=== PATIENT | female | born 1955 | race Hispanic/Latino ===

== ENCOUNTER 2021-07-10 09:16 | Outpatient (CLI) | payer MEDICARE | END 2021-07-10 09:17 | disposition home or self-care (01) | LOC: BICMAMMO 09:16 | PROVIDERS: ATTEND Student in an Organized Health Care Education/Training Program | DX: Z12.31 Encounter for screening mammogram for malignant neoplasm of breast (principal) | CPT/HCPCS: 77063; 77067 ==

== ENCOUNTER 2022-06-08 16:02 | Observation (INO) | payer MEDICARE ==
[2022-06-08 17:00] LABS: #Basophils 0.1 thou/uL (0.0-0.2); #Eosinphils 0.2 thou/uL (0.0-0.7); #Lymphocytes 2.9 thou/uL (1.20-3.40); #Monocytes 0.6 thou/uL (0.11-0.59); #Neutrophils 5.1 thou/uL (1.40-6.50); %Basophils 0.7 % (0.0-1.0); %Eosinophils 2.5 % (0.0-10.0); %Monocytes 6.2 % (0.0-10.0); %Neutrophils 57.7 % (42.0-75.0); Hemoglobin 14.5 g/dL (12.0-16.0); Mean Corpuscular Hemoglobin 34.4 pg (27.0-31.0); Mean Corpuscular Volume 98.2 fl (78.0-98.0); Mean Platelet Volume 9.2 fL (7.4-10.4); Platelet Count 192 10x3/uL (130-400); RBC Distribution Width 10.8 % (11.5-14.5); White Blood Cell (WBC) Count 8.8 10x3/uL (4.8-10.8)
[2022-06-08 17:23] LABS: ALT (SGPT) 30 U/L (8-55); AST (SGOT) 30 U/L (5-34); Albumin 4.3 g/dL (3.4-4.8); Alkaline Phosphatase 108 U/L (40-110); Anion Gap 14 mmol/L (10-20); BUN (Urea Nitrogen) 14 mg/dL (9.8-20.1); Bilirubin, Total 0.6 mg/dL (0.2-1.2); Calc. Creatinine Clearance 0 mL/min (70-130); Calcium 9.2 mg/dL (7.8-10.44); Carbon Dioxide 22 mmol/L (23-31); Chloride 108 mmol/L (98-107); Estimated GFR 52; Globulin 3.3 g/dL (2.4-3.5); Glucose 184 mg/dL (80-115); Potassium 3.8 mmol/L (3.5-5.1); Protein, Total 7.6 g/dL (5.8-8.1); Sodium 140 mmol/L (136-145)
[2022-06-08] MEDS ORDERED: Nitroglycerin 2% Ointment 1 INCH/1 GM Packet ONE (19:47)
[2022-06-08] MEDS ORDERED: Aspirin Chewable 81 MG TAB ONE (19:47)
[2022-06-08] MEDS ORDERED: Morphine 4 MG/ML VIAL ONE (22:34)
[2022-06-08 23:00] LABS: Troponin I Less than 0.010 ng/mL (< 0.028)
[2022-06-08] MEDS ORDERED: Nitroglycerin 0.4 MG TAB (25 Tab Bottle) SL PRN (23:13)
[2022-06-08] MEDS ORDERED: Ondansetron PF 4 MG/2 ML Vial IVP PRN (23:13)
[2022-06-08] MEDS ORDERED: Acetaminophen 325 MG TAB PO PRN (23:13)
[2022-06-08] MEDS ORDERED: Ondansetron ODT 4 MG TAB PO PRN (23:13)
[2022-06-08 23:45] LABS: Magnesium 2.2 mg/dL (1.6-2.6)
[2022-06-09 01:06] LABS: Hemoglobin A1c 5.7 % (4.0-6.0)
[2022-06-09 05:32] LABS: Anion Gap 12 mmol/L (10-20); BUN (Urea Nitrogen) 12 mg/dL (9.8-20.1); Calc. Creatinine Clearance 0 mL/min (70-130); Calcium 8.4 mg/dL (7.8-10.44); Carbon Dioxide 21 mmol/L (23-31); Cardiac Risk 5.8 (Less than 4.5); Chloride 112 mmol/L (98-107); Cholesterol 173 mg/dl (< 200 Desired); Estimated GFR 87; Glucose 126 mg/dL (80-115); HDL Cholesterol 30 mg/dL (>60 Neg Risk); LDL Cholesterol, Calculated 104 mg/dL; Potassium 3.8 mmol/L (3.5-5.1); Sodium 141 mmol/L (136-145); Triglycerides 193 mg/dL (Less than 150); Troponin I Less than 0.010 ng/mL (< 0.028)
[2022-06-09 05:41] LABS: #Basophils 0.1 thou/uL (0.0-0.2); #Eosinphils 0.3 thou/uL (0.0-0.7); #Lymphocytes 3.1 thou/uL (1.20-3.40); #Monocytes 0.4 thou/uL (0.11-0.59); #Neutrophils 2.9 thou/uL (1.40-6.50); %Eosinophils 3.8 % (0.0-10.0); %Monocytes 6.4 % (0.0-10.0); %Neutrophils 42.9 % (42.0-75.0); Hemoglobin 12.9 g/dL (12.0-16.0); Mean Corpuscular HGB CONC 36.5 g/dL (32.0-36.0); Mean Corpuscular Hemoglobin 36.4 pg (27.0-31.0); Mean Corpuscular Volume 99.8 fl (78.0-98.0); Platelet Count 167 10x3/uL (130-400); RBC Distribution Width 10.7 % (11.5-14.5); Red Blood Cell (RBC) Count 3.54 mill/uL (4.20-5.40); White Blood Cell (WBC) Count 6.7 10x3/uL (4.8-10.8)
[2022-06-09] MEDS ORDERED: Acetaminophen 325 MG TAB ONE (08:25)
[2022-06-09] MEDS ORDERED: Aspirin Chewable 81 MG TAB PO SCH (09:00)
[2022-06-09 09:39] LABS: Magnesium 2.1 mg/dL (1.6-2.6)
[2022-06-09] MEDS ORDERED: ADENOSINE 60 MG/20 ML VIAL ONE (11:08)
[2022-06-09 14:50] VITALS: TEMP 98.1
[2022-06-09 15:49] VITALS: BMI 25.4
[2022-06-09 16:18] VITALS: BP 179/89
[2022-06-10] MEDS ORDERED: FLU VACC QS2022-23(65YR UP)/PF 240 MCG/0.7 ML SYRINGE IM ONE (09:00)
== END 2022-06-09 18:19 | disposition home or self-care (01) ==
LOC: ERS 16:02 → ERHOLD 22:13 → 2SW 22:44
PROVIDERS: ADMIT Physician Assistant; ATTEND Nurse Practitioner Family
DX: I20.0 Unstable angina (principal); I10 Essential (primary) hypertension; R73.9 Hyperglycemia, unspecified; Z66 Do not resuscitate; Z79.82 Long term (current) use of aspirin; Z20.822 Contact with and (suspected) exposure to COVID-19
CPT/HCPCS: 71045; 78452; 80048; 80061; 83036; 83735 ×2; 84100; 84443; 84484 ×3; 85025; 85379; 93005; 93017; 94760; 96374; 99285; A9500; G0378 ×3; U0003; U0005; 36415; 80053; J0153; J2270

== ENCOUNTER 2022-06-23 07:40 | Outpatient (CLI) | payer MEDICARE ==
[2022-06-23] MEDS ORDERED: Iopamidol-370 76% 500 ML 1 ML ONE (09:10)
== END 2022-06-23 07:41 | disposition home or self-care (01) ==
LOC: CT 07:40
PROVIDERS: ATTEND Student in an Organized Health Care Education/Training Program
DX: R10.32 Left lower quadrant pain (principal); G89.29 Other chronic pain; N20.0 Calculus of kidney; K57.90 Diverticulosis of intestine, part unspecified, without perforation or abscess without bleeding; N28.1 Cyst of kidney, acquired; Z90.49 Acquired absence of other specified parts of digestive tract
CPT/HCPCS: 74178; Q9967

== ENCOUNTER 2022-07-01 08:56 | Emergency (ER) | payer MEDICARE ==
[2022-07-01] MEDS ORDERED: Lidocaine 1% PF 5 ML VIAL ONE (09:15)
[2022-07-01] MEDS ORDERED: Boostrix 0.5 ML (Tdap) VIAL (>/=7 yrs of age) ONE (09:15)
== END 2022-07-01 10:19 | disposition home or self-care (01) ==
LOC: ERS 08:56
DX: S61.012A Laceration without foreign body of left thumb without damage to nail, initial encounter (principal); I10 Essential (primary) hypertension; Z23 Encounter for immunization; Z87.891 Personal history of nicotine dependence; W26.0XXA Contact with knife, initial encounter; Y93.G3 Activity, cooking and baking
CPT/HCPCS: 90715

== ENCOUNTER 2022-07-06 11:37 | Emergency (ER) | payer MEDICARE | END 2022-07-06 15:59 | disposition home or self-care (01) | LOC: ERS 11:37 | DX: S61.011A Laceration without foreign body of right thumb without damage to nail, initial encounter (principal); I10 Essential (primary) hypertension; W26.9XXA Contact with unspecified sharp object(s), initial encounter; Y93.G3 Activity, cooking and baking | CPT/HCPCS: 99283 ==

== ENCOUNTER 2022-07-31 21:16 | Emergency (ER) | payer MEDICARE ==
[~2022-07-31 21:16] MED LIST: Iopamidol 370 76% 100 ML VIAL ONE
[2022-07-31 21:41] LABS: #Basophils 0.1 thou/uL (0.0-0.2); #Eosinphils 0.2 thou/uL (0.0-0.7); #Lymphocytes 2.7 thou/uL (1.20-3.40); #Monocytes 0.7 thou/uL (0.11-0.59); %Basophils 1.3 % (0.0-1.0); %Eosinophils 1.8 % (0.0-10.0); %Lymphocytes 27.6 % (21.0-51.0); %Monocytes 6.8 % (0.0-10.0); %Neutrophils 62.6 % (42.0-75.0); Hemoglobin 14.3 g/dL (12.0-16.0); Mean Corpuscular HGB CONC 35.4 g/dL (32.0-36.0); Mean Corpuscular Volume 98.9 fl (78.0-98.0); Mean Platelet Volume 8.9 fL (7.4-10.4); Platelet Count 187 10x3/uL (130-400); Red Blood Cell (RBC) Count 4.08 mill/uL (4.20-5.40); White Blood Cell (WBC) Count 9.6 10x3/uL (4.8-10.8)
[2022-07-31 22:07] LABS: ALT (SGPT) 25 U/L (8-55); AST (SGOT) 25 U/L (5-34); Albumin 4.1 g/dL (3.4-4.8); Alkaline Phosphatase 102 U/L (40-110); Anion Gap 13 mmol/L (10-20); BUN (Urea Nitrogen) 14 mg/dL (9.8-20.1); Bilirubin, Total 0.4 mg/dL (0.2-1.2); Calc. Creatinine Clearance 0 mL/min (70-130); Calcium 9.3 mg/dL (7.8-10.44); Carbon Dioxide 25 mmol/L (23-31); Chloride 109 mmol/L (98-107); Estimated GFR 70; Globulin 2.9 g/dL (2.4-3.5); Glucose 107 mg/dL (80-115); Lipase 18 U/L (8-78); Potassium 3.7 mmol/L (3.5-5.1); Sodium 143 mmol/L (136-145)
[2022-07-31] MEDS ORDERED: Mag-Al 1200 mg/1200 mg/30 ML UDCUP ONE (22:17)
[2022-07-31] MEDS ORDERED: Lidocaine Viscous Sol 2% 15 ml UD Cup ONE (22:17)
[2022-07-31 23:49] LABS: Bilirubin Negative (Negative); Blood, Urine Negative (Negative); Clarity Turbid (Clear); Glucose, Urine (Dipstick) Normal (Negative); Ketone, Urine Negative (Negative); Leukocyte 75 Leu/uL (Negative); Nitrite Negative (Negative); Protein, Urine (Dipstick) Negative (Neg-Trace); RBC/HPF 0-3 HPF (0-3); Squamous Epithelial 0-3 HPF (0-3); Urobilinogen Normal mg/dL (Less than 2)
[2022-07-31 23:50] LABS: Bacteria/HPF 1+ HPF (None Seen)
== END 2022-08-01 00:15 | disposition home or self-care (01) ==
LOC: ERS 21:16
DX: R10.13 Epigastric pain (principal); I10 Essential (primary) hypertension
CPT/HCPCS: 36415; 71045; 74177; 80053; 81003; 81015; 83690; 84484; 85025; 93005; Q9967

== ENCOUNTER 2022-09-29 08:07 | Outpatient (CLI) | payer MEDICARE | END 2022-09-29 08:08 | disposition home or self-care (01) | LOC: BICMAMMO 08:07 | PROVIDERS: ATTEND Student in an Organized Health Care Education/Training Program | DX: Z78.0 Asymptomatic menopausal state (principal); M81.0 Age-related osteoporosis without current pathological fracture | CPT/HCPCS: 77080 ==

== ENCOUNTER 2024-02-25 03:35 | Emergency (ER) | payer MEDICARE ==
[2024-02-25] MEDS ORDERED: methylPREDNISolone Sod Succ/PF 125 MG/2 ML VIAL ONE (03:46)
[2024-02-25] MEDS ORDERED: Famotidine/PF 20 mg/2ml Vial ONE (03:46)
[2024-02-25] MEDS ORDERED: EPINEPHrine 1 MG/ML VIAL ONE (03:46)
[2024-02-25] MEDS ORDERED: Dexamethasone 10 MG/ML VIAL ONE (03:48)
[2024-02-25] MEDS ORDERED: diphenhydrAMINE 50 MG/ML VIAL ONE (03:48)
[2024-02-25] MEDS ORDERED: Ondansetron PF 4 MG/2 ML Vial ONE (03:53)
[2024-02-25] MEDS ORDERED: predniSONE 20 MG TAB ONE (04:08)
[2024-02-25] MEDS ORDERED: Lorazepam 2 MG/ML VIAL ONE (06:33)
== END 2024-02-25 05:54 | disposition home or self-care (01) ==
LOC: ERS 03:35
DX: T78.09XA Anaphylactic reaction due to other food products, initial encounter (principal); I10 Essential (primary) hypertension
CPT/HCPCS: 93005; 96372; 96374; 96375; 99284; J0171; J1100; J1200; J2405; J3490; J2060; J2919; J7512

== ENCOUNTER 2024-03-14 07:40 | Outpatient (CLI) | payer MEDICARE | END 2024-03-14 07:41 | disposition home or self-care (01) | LOC: MRI 07:40 → SCSMRI 07:41 | PROVIDERS: ATTEND Internal Medicine | DX: R10.13 Epigastric pain (principal); R79.89 Other specified abnormal findings of blood chemistry; N28.1 Cyst of kidney, acquired; L90.5 Scar conditions and fibrosis of skin | CPT/HCPCS: 74183; 76376 ==

== ENCOUNTER → 2024-04-19 | Emergency (ER) | payer MEDICARE | LOC: ERS 14:50 | DX: T78.05XA Anaphylactic reaction due to tree nuts and seeds, initial encounter (principal); I10 Essential (primary) hypertension | CPT/HCPCS: 93005; 96361; 96372; 96374; 96375 ==